=== PATIENT | male | born 1975 | race Two or more races ===

== ENCOUNTER → 2018-12-11 | Outpatient (CLI) | payer OTHER ==
[2018-12-11 08:06] LABS: Basophils # (auto) 0 uL; Basophils % (auto) 0.3 % (0.0-2.0); Eosinophils # (auto) 0.1 uL; Eosinophils % (auto) 2.3 % (0.0-7.0); Hematocrit 44.6 % (41.0-53.0); Hemoglobin 15.6 g/dL (13.5-17.5); Lymphocytes # (auto) 2.3 uL; Lymphocytes % (auto) 43.8 % (10.0-50.0); Mean Corpuscular Hemoglobin 32.9 pg (28.0-32.0); Mean Corpuscular Hgb Conc. 34.9 g/dL (32.0-36.0); Mean Corpuscular Volume 94.2 fL (80.0-100.0); Monocytes # (auto) 0.4 uL; Neutrophils # (auto) 2.4 uL; Neutrophils % (auto) 45.6 % (37.0-80.0); Nucleated Red Blood Cells % 0.1 %; Platelet Count (auto) 247 10^3/uL (140-450); Red Blood Cells 4.73 10^6/uL (4.5-5.90); Red Cell Distribution Width 13.2 % (11.8-14.3); White Blood Cell 5.3 10^3/uL (4.4-10.8)
[2018-12-11 08:42] LABS: BUN/Creatinine Ratio 13.1
[2018-12-11 08:43] LABS: Albumin 3.7 g/dL (3.4-5.0); Calcium 8.7 mg/dL (8.5-10.1)
[2018-12-11 08:46] LABS: Bilirubin, Total 0.5 mg/dL (0.2-1.0)
== END | disposition home or self-care (01) ==
LOC: LAB 07:52
PROVIDERS: ATTEND Physician Assistant
DX: Z00.00 Encounter for general adult medical examination without abnormal findings (principal); J30.2 Other seasonal allergic rhinitis; R51 Headache; K29.60 Other gastritis without bleeding; Z82.3 Family history of stroke; Z83.3 Family history of diabetes mellitus
CPT/HCPCS: 36415; 80053; 80061; 85025

== ENCOUNTER 2020-05-02 12:01 | Inpatient (IN) | payer OTHER ==
[~2020-05-02] VITALS: Ht 180.3 cm; Wt 81.5 kg
[2020-05-02] MEDS: BUDESONIDE (INHALATION) 180 MCG IH IN SCH (07:15)
[2020-05-02] MEDS ORDERED: AZITHROMYCIN 500MG/ 250ML 250 ML IV ONE (12:30)
[2020-05-02] MEDS ORDERED: DexAMETHasone SOD PHOS 10MG/1ML VIAL INJ IV ONE (12:30)
[2020-05-02] MEDS ORDERED: cefTRIAXone 1GM/50ML D5W 50 ML IV ONE (12:30)
[2020-05-02] MEDS ORDERED: ASPirin 81 mg TAB PO ONE (12:30)
[2020-05-02 12:50] LABS: Basophils # (auto) 0 10 ^3/uL (0-0.2); Basophils % (auto) 0.1 % (0.0-2.0); Eosinophils # (auto) 0 10 ^3/uL (0-0.8); Hemoglobin 14.2 g/dL (13.5-17.5); Lymphocytes # (auto) 0.6 10 ^3/uL (0.4-5.4); Lymphocytes % (auto) 8.8 % (10.0-50.0); Mean Corpuscular Hemoglobin 32.2 pg (28.0-32.0); Mean Corpuscular Hgb Conc. 34.7 g/dL (32.0-36.0); Mean Corpuscular Volume 92.8 fL (80.0-100.0); Monocytes # (auto) 0.4 10 ^3/uL (0-1.3); Monocytes % (auto) 6.4 % (0.0-12.0); Neutrophils # (auto) 5.7 10 ^3/uL (1.6-8.6); Neutrophils % (auto) 84.7 % (37.0-80.0); Nucleated Red Blood Cells % 0.1 %; Platelet Count (auto) 231 10^3/uL (140-450); Red Blood Cells 4.42 10^6/uL (4.5-5.90); Red Cell Distribution Width 13.1 % (11.8-14.3); White Blood Cell 6.7 10^3/uL (4.4-10.8)
[2020-05-02 13:14] LABS: Albumin 3.1 g/dL (3.4-5.0); Anion Gap 8 (5-15); Blood Urea Nitrogen 11 mg/dL (7-18); Calcium 8.4 mg/dL (8.5-10.1); Carbon Dioxide 24 mmol/L (21-32); Chloride 99 mmol/L (98-107); Glucose 109 mg/dL (74-106); Potassium 3.8 mmol/L (3.5-5.1); Sodium 131 mmol/L (136-145)
[2020-05-02 13:19] LABS: Alanine Aminotransferase 36 U/L (16-61); Alkaline Phosphatase 56 U/L (45-117); Aspartate Aminotransferase 30 U/L (15-37); BUN/Creatinine Ratio 15.3; Bilirubin, Total 0.4 mg/dL (0.2-1.0); GFR African American 153 mL/min; GFR Non-African American 126 mL/min; Total Protein 7.2 g/dL (6.4-8.2)
[2020-05-02] MEDS ORDERED: MORPHINE SULF INJ 2 MG/ML SYRINGE 1ML IV PRN ×2 (15:30)
[2020-05-02] MEDS ORDERED: LORazepam 0.5 MG TAB PO ONE (15:30)
[2020-05-02] MEDS ORDERED: ALUM & MAG HYDROX-SIMETH LIQ(MAALOX) 30 ML PO PRN (15:30)
[2020-05-02] MEDS ORDERED: REMDESIVIR PER PHARMACY 0 ML IV SCH (15:30)
[2020-05-02] MEDS ORDERED: DOCUSATE SOD 100 MG CAP PO PRN (15:30)
[2020-05-02] MEDS ORDERED: HYDROcodone-ACET 5/325MG TAB PO PRN (15:30)
[2020-05-02] MEDS ORDERED: NITROGLYCERIN 0.4 MG SL TAB SL PRN (15:30)
[2020-05-02] MEDS ORDERED: ONDANSETRON HCL 4 MG/2 ML VIAL IV PRN (15:30)
[2020-05-02] MEDS ORDERED: ACETAMINOPHEN 500 MG TAB PO PRN (15:30)
[2020-05-02] MEDS ORDERED: ALBUAER3 IN (15:38)
[2020-05-02] MEDS ORDERED: REMDESIVIR 200 MG in NS 210ml LOADING DOSE ADULT IV ONE (18:00)
[2020-05-02 18:52] LABS: Urine Bacteria NONE SEEN /hpf (None Seen); Urine Blood Negative /uL (Negative); Urine Specific Gravity 1.006 (1.001-1.035); Urine WBC <1 /hpf (0 - 3)
[2020-05-02 18:56] LABS: Cholesterol 74 mg/dL (< 200); Triglycerides 92 mg/dL (< 150)
[2020-05-02 18:58] LABS: HDL Cholesterol 31 mg/dL (40-59); LDL Cholesterol 36 mg/dL (< 100)
[2020-05-02 19:01] LABS: CRP High Sensitivity 7.79 mg/dL (< 0.3); Magnesium 2.2 mg/dL (1.6-2.6)
[2020-05-02 19:26] LABS: Amphetamine Screen, Urine NEGATIVE (NEGATIVE); Barbiturate Scree,Urine NEGATIVE (NEGATIVE); Benzodiazephine Screen, Urine NEGATIVE (NEGATIVE); Cannabinoid Screen, Urine NEGATIVE (NEGATIVE); Cocaine Screen, Urine NEGATIVE (NEGATIVE); Opiate Scree,Urine NEGATIVE (NEGATIVE); Phencyclidine Screen, Urine NEGATIVE (NEGATIVE)
[2020-05-02] MEDS: FUROSEMIDE 20 MG/2 ML VIAL IV SCH (21:58)
[2020-05-02] MEDS: DOXYCYCLINE 100MG/250ML 250 ML IV SCH (21:59)
[2020-05-02] MEDS: FAMOTIDINE (10MG/ML) 2ML VL IV SCH (21:59)
[2020-05-02] MEDS: ENOXAPARIN SOD 40 MG/0.4 ML SYRINGE SC SCH (21:59)
[2020-05-02] MEDS ORDERED: ATORVASTATIN 20 MG TAB PO SCH (22:00)
[2020-05-03 03:11] VITALS: BP 125/74
[2020-05-03] MEDS: LORazepam 0.5 MG TAB PO PRN ×3 (03:46→21:22)
[2020-05-03 04:07] VITALS: BP 124/75
[2020-05-03] MEDS: FUROSEMIDE 20 MG/2 ML VIAL IV SCH (06:00)
[2020-05-03 08:00] VITALS: BP 111/65
[2020-05-03] MEDS: DexAMETHasone SOD PHOS 10MG/1ML VIAL INJ IV SCH (09:27)
[2020-05-03] MEDS: FAMOTIDINE (10MG/ML) 2ML VL IV SCH ×2 (09:27→21:01)
[2020-05-03] MEDS: DOXYCYCLINE 100MG/250ML 250 ML IV SCH ×2 (09:28→21:01)
[2020-05-03] MEDS: CHOLECALCIFEROL (VITD3) 2,000 UNIT CAP PO SCH (09:28)
[2020-05-03] MEDS: ZINC SULFATE 220mg CAP or TAB PO SCH (09:28)
[2020-05-03] MEDS: ASCORBIC ACID 1,000 MG TAB PO SCH (09:28)
[2020-05-03] MEDS: ASPirin 81 mg TAB PO SCH (09:28)
[2020-05-03] MEDS: ENOXAPARIN SOD 40 MG/0.4 ML SYRINGE SC SCH ×2 (09:29→21:01)
[2020-05-03 09:50] LABS: Potassium 3.8 mmol/L (3.5-5.1)
[2020-05-03 09:56] LABS: Albumin 2.7 g/dL (3.4-5.0); BUN/Creatinine Ratio 16.3; Basophils # (auto) 0 10 ^3/uL (0-0.2); Basophils % (auto) 0.1 % (0.0-2.0); Bilirubin, Total 0.4 mg/dL (0.2-1.0); Calcium 8.4 mg/dL (8.5-10.1); Eosinophils # (auto) 0 10 ^3/uL (0-0.8); Hematocrit 41.4 % (41.0-53.0); Hemoglobin 14.5 g/dL (13.5-17.5); Lymphocytes # (auto) 0.8 10 ^3/uL (0.4-5.4); Lymphocytes % (auto) 11.2 % (10.0-50.0); Magnesium 2.2 mg/dL (1.6-2.6); Mean Corpuscular Hemoglobin 32.6 pg (28.0-32.0); Mean Corpuscular Hgb Conc. 35.1 g/dL (32.0-36.0); Monocytes # (auto) 0.4 10 ^3/uL (0-1.3); Monocytes % (auto) 5.5 % (0.0-12.0); Neutrophils # (auto) 6.1 10 ^3/uL (1.6-8.6); Neutrophils % (auto) 83.2 % (37.0-80.0); Nucleated Red Blood Cells % 0.1 %; Phosphorus 3.1 mg/dL (2.5-4.90); Platelet Count (auto) 272 10^3/uL (140-450); Red Blood Cells 4.45 10^6/uL (4.5-5.90); Red Cell Distribution Width 13.2 % (11.8-14.3); Total Protein 6.9 g/dL (6.4-8.2); White Blood Cell 7.3 10^3/uL (4.4-10.8)
[2020-05-03 10:15] LABS: INR 1.02 (0.9-1.15); Partial Thromboplastin Time 29.6 sec (23.0-31.2)
[2020-05-03] MEDS ORDERED: ERGOCALCIFEROL 50,000 UNIT(1.25MG) CAP PO SCH (12:00)
[2020-05-03] MEDS ORDERED: POTASSIUM CHL 20 Meq TABLET PO ONE (12:00)
[2020-05-03] MEDS: BUDESONIDE (INHALATION) 180 MCG IH IN SCH ×2 (14:00→21:48)
[2020-05-03] MEDS: ALBUTEROL SULF HFA 90MCG INH 200DOSE IN PRN ×2 (14:33→21:49)
[2020-05-03] MEDS: REMDESIVIR 100mg 100 MG in SODIUM CHL 0.9% 230 ML IV SCH (15:51)
[2020-05-03 16:00] VITALS: BP 125/69
[2020-05-04] VITALS: BP 119/77
[2020-05-04] MEDS: LORazepam 0.5 MG TAB PO PRN ×3 (05:12→20:22)
[2020-05-04 06:39] LABS: Potassium 3.9 mmol/L (3.5-5.1)
[2020-05-04 06:51] LABS: Albumin 2.7 g/dL (3.4-5.0); BUN/Creatinine Ratio 16.9; Calcium 8.4 mg/dL (8.5-10.1)
[2020-05-04 06:54] LABS: Bilirubin, Total 0.4 mg/dL (0.2-1.0); Total Protein 6.3 g/dL (6.4-8.2)
[2020-05-04] MEDS: BUDESONIDE (INHALATION) 180 MCG IH IN SCH ×2 (07:15→20:00)
[2020-05-04] MEDS: ALBUTEROL SULF HFA 90MCG INH 200DOSE IN PRN ×2 (07:15→20:00)
[2020-05-04 08:00] VITALS: BP 122/76
[2020-05-04] MEDS: DexAMETHasone SOD PHOS 10MG/1ML VIAL INJ IV SCH (09:13)
[2020-05-04] MEDS: FUROSEMIDE 20 MG/2 ML VIAL IV SCH (09:14)
[2020-05-04] MEDS: ASPirin 81 mg TAB PO SCH (09:15)
[2020-05-04] MEDS: ZINC SULFATE 220mg CAP or TAB PO SCH (09:15)
[2020-05-04] MEDS: FAMOTIDINE (10MG/ML) 2ML VL IV SCH (09:15)
[2020-05-04] MEDS: ASCORBIC ACID 1,000 MG TAB PO SCH (09:15)
[2020-05-04] MEDS: DOXYCYCLINE 100MG/250ML 250 ML IV SCH ×2 (09:15→21:52)
[2020-05-04] MEDS: POTASSIUM CHL 20 Meq TABLET PO SCH (09:16)
[2020-05-04] MEDS: ENOXAPARIN SOD 40 MG/0.4 ML SYRINGE SC SCH ×2 (09:16→21:52)
[2020-05-04] MEDS: CHOLECALCIFEROL (VITD3) 2,000 UNIT CAP PO SCH (09:16)
[2020-05-04] MEDS: REMDESIVIR 100mg 100 MG in SODIUM CHL 0.9% 230 ML IV SCH (15:44)
[2020-05-04 15:58] VITALS: BP 130/69
[2020-05-04] MEDS: FAMOTIDINE 20 MG TAB PO SCH (21:52)
[2020-05-04] MEDS: TEMAZEPAM 15 MG CAP PO PRN (22:01)
[2020-05-05] VITALS: BP 112/71
[2020-05-05 06:56] LABS: Albumin 3.1 g/dL (3.4-5.0); BUN/Creatinine Ratio 19.7; Calcium 8.9 mg/dL (8.5-10.1); Potassium 4.1 mmol/L (3.5-5.1)
[2020-05-05 06:59] LABS: Bilirubin, Total 0.5 mg/dL (0.2-1.0); Total Protein 7.4 g/dL (6.4-8.2)
[2020-05-05 08:00] VITALS: BP 113/71
[2020-05-05] MEDS: ALBUTEROL SULF HFA 90MCG INH 200DOSE IN PRN ×2 (08:00→19:35)
[2020-05-05] MEDS: BUDESONIDE (INHALATION) 180 MCG IH IN SCH ×2 (08:00→19:35)
[2020-05-05] MEDS: CHOLECALCIFEROL (VITD3) 2,000 UNIT CAP PO SCH (09:18)
[2020-05-05] MEDS: ASPirin 81 mg TAB PO SCH (09:18)
[2020-05-05] MEDS: FUROSEMIDE 20 MG/2 ML VIAL IV SCH (09:18)
[2020-05-05] MEDS: ZINC SULFATE 220mg CAP or TAB PO SCH (09:18)
[2020-05-05] MEDS: FAMOTIDINE 20 MG TAB PO SCH ×2 (09:18→22:02)
[2020-05-05] MEDS: DexAMETHasone SOD PHOS 10MG/1ML VIAL INJ IV SCH (09:19)
[2020-05-05] MEDS: POTASSIUM CHL 20 Meq TABLET PO SCH (09:20)
[2020-05-05] MEDS: ASCORBIC ACID 1,000 MG TAB PO SCH (09:20)
[2020-05-05] MEDS: ENOXAPARIN SOD 40 MG/0.4 ML SYRINGE SC SCH ×2 (09:20→22:02)
[2020-05-05] MEDS: DOXYCYCLINE 100MG/250ML 250 ML IV SCH ×2 (09:21→22:02)
[2020-05-05] MEDS: LORazepam 0.5 MG TAB PO PRN (14:04)
[2020-05-05] MEDS ORDERED: cefTRIAXone 1GM/50ML D5W 50 ML IV ONE (14:15)
[2020-05-05] MEDS: REMDESIVIR 100mg 100 MG in SODIUM CHL 0.9% 230 ML IV SCH (15:47)
[2020-05-05 16:00] VITALS: BP 124/72
[2020-05-06] VITALS: BP 122/71
[2020-05-06 06:23] LABS: Basophils # (auto) 0 10 ^3/uL (0-0.2); Basophils % (auto) 0.2 % (0.0-2.0); Eosinophils # (auto) 0 10 ^3/uL (0-0.8); Hematocrit 46.2 % (41.0-53.0); Lymphocytes # (auto) 1.6 10 ^3/uL (0.4-5.4); Lymphocytes % (auto) 21.2 % (10.0-50.0); Mean Corpuscular Hemoglobin 32.5 pg (28.0-32.0); Mean Corpuscular Hgb Conc. 34.7 g/dL (32.0-36.0); Mean Corpuscular Volume 93.6 fL (80.0-100.0); Monocytes # (auto) 1.2 10 ^3/uL (0-1.3); Monocytes % (auto) 15.9 % (0.0-12.0); Neutrophils # (auto) 4.7 10 ^3/uL (1.6-8.6); Neutrophils % (auto) 62.7 % (37.0-80.0); Nucleated Red Blood Cells % 0.1 %; Platelet Count (auto) 411 10^3/uL (140-450); Red Blood Cells 4.94 10^6/uL (4.5-5.90); Red Cell Distribution Width 13.3 % (11.8-14.3); White Blood Cell 7.5 10^3/uL (4.4-10.8)
[2020-05-06 06:42] LABS: Potassium 4.8 mmol/L (3.5-5.1)
[2020-05-06 06:52] LABS: Albumin 2.9 g/dL (3.4-5.0); BUN/Creatinine Ratio 17.3; Bilirubin, Total 0.4 mg/dL (0.2-1.0); Calcium 8.9 mg/dL (8.5-10.1); Total Protein 7.2 g/dL (6.4-8.2)
[2020-05-06] MEDS: ALBUTEROL SULF HFA 90MCG INH 200DOSE IN PRN ×2 (07:38→19:38)
[2020-05-06] MEDS: BUDESONIDE (INHALATION) 180 MCG IH IN SCH ×2 (07:38→18:50)
[2020-05-06 08:00] VITALS: BP 119/69
[2020-05-06] MEDS: DexAMETHasone SOD PHOS 10MG/1ML VIAL INJ IV SCH (09:42)
[2020-05-06] MEDS: cefTRIAXone 1GM/50ML D5W 50 ML IV SCH (09:42)
[2020-05-06] MEDS: FUROSEMIDE 20 MG/2 ML VIAL IV SCH (09:43)
[2020-05-06] MEDS: ASPirin 81 mg TAB PO SCH (09:43)
[2020-05-06] MEDS: FAMOTIDINE 20 MG TAB PO SCH ×2 (10:08→22:38)
[2020-05-06] MEDS: POTASSIUM CHL 20 Meq TABLET PO SCH (10:08)
[2020-05-06] MEDS: ZINC SULFATE 220mg CAP or TAB PO SCH (10:08)
[2020-05-06] MEDS: ASCORBIC ACID 1,000 MG TAB PO SCH (10:09)
[2020-05-06] MEDS: CHOLECALCIFEROL (VITD3) 2,000 UNIT CAP PO SCH (10:09)
[2020-05-06] MEDS: DOXYCYCLINE 100MG/250ML 250 ML IV SCH ×2 (10:09→22:37)
[2020-05-06] MEDS: ENOXAPARIN SOD 40 MG/0.4 ML SYRINGE SC SCH ×2 (15:12→22:38)
[2020-05-06] MEDS: REMDESIVIR 100mg 100 MG in SODIUM CHL 0.9% 230 ML IV SCH (15:12)
[2020-05-06 16:00] VITALS: BP 113/73
[2020-05-06] MEDS: LORazepam 0.5 MG TAB PO PRN (20:52)
[2020-05-07] VITALS: BP 108/69
[2020-05-07 08:00] VITALS: BP 114/74
[2020-05-07] MEDS: BUDESONIDE (INHALATION) 180 MCG IH IN SCH ×2 (09:49→22:09)
[2020-05-07] MEDS: ALBUTEROL SULF HFA 90MCG INH 200DOSE IN PRN ×2 (09:49→22:09)
[2020-05-07] MEDS: DexAMETHasone SOD PHOS 10MG/1ML VIAL INJ IV SCH (10:02)
[2020-05-07] MEDS: cefTRIAXone 1GM/50ML D5W 50 ML IV SCH (10:02)
[2020-05-07] MEDS: ASPirin 81 mg TAB PO SCH (10:03)
[2020-05-07] MEDS: FUROSEMIDE 20 MG/2 ML VIAL IV SCH (10:03)
[2020-05-07] MEDS: ZINC SULFATE 220mg CAP or TAB PO SCH (10:03)
[2020-05-07] MEDS: POTASSIUM CHL 20 Meq TABLET PO SCH (10:04)
[2020-05-07] MEDS: FAMOTIDINE 20 MG TAB PO SCH ×2 (10:04→21:39)
[2020-05-07] MEDS: ASCORBIC ACID 1,000 MG TAB PO SCH (10:04)
[2020-05-07] MEDS: CHOLECALCIFEROL (VITD3) 2,000 UNIT CAP PO SCH (10:04)
[2020-05-07] MEDS: ENOXAPARIN SOD 40 MG/0.4 ML SYRINGE SC SCH ×2 (10:04→21:38)
[2020-05-07] MEDS: DOXYCYCLINE 100MG/250ML 250 ML IV SCH (10:22)
[2020-05-07 16:00] VITALS: BP 107/72
[2020-05-07] MEDS: TEMAZEPAM 15 MG CAP PO PRN (21:39)
[2020-05-08] VITALS: BP 118/73
[2020-05-08 08:00] VITALS: BP 117/70
[2020-05-08] MEDS: cefTRIAXone 1GM/50ML D5W 50 ML IV SCH (08:57)
[2020-05-08] MEDS: BUDESONIDE (INHALATION) 180 MCG IH IN SCH (08:57)
[2020-05-08] MEDS: DexAMETHasone SOD PHOS 10MG/1ML VIAL INJ IV SCH (08:58)
[2020-05-08] MEDS: ASPirin 81 mg TAB PO SCH (08:58)
[2020-05-08] MEDS: FUROSEMIDE 20 MG/2 ML VIAL IV SCH (08:58)
[2020-05-08] MEDS: ENOXAPARIN SOD 40 MG/0.4 ML SYRINGE SC SCH (08:59)
[2020-05-08] MEDS: ZINC SULFATE 220mg CAP or TAB PO SCH (08:59)
[2020-05-08] MEDS: CHOLECALCIFEROL (VITD3) 2,000 UNIT CAP PO SCH (08:59)
[2020-05-08] MEDS: FAMOTIDINE 20 MG TAB PO SCH (09:07)
[2020-05-08] MEDS: ASCORBIC ACID 1,000 MG TAB PO SCH (09:07)
[2020-05-08] MEDS: POTASSIUM CHL 20 Meq TABLET PO SCH (09:08)
[2020-05-08] MEDS: ALBUTEROL SULF HFA 90MCG INH 200DOSE IN PRN (10:15)
[2020-05-08 13:11] VITALS: BP 117/70
== END 2020-05-08 16:35 | disposition home or self-care (01) | DRG 871 ==
LOC: ER 12:01 → TELE 12:02 → TELE-EAST 05-03 03:11
PROVIDERS: ADMIT Hospitalist; ATTEND Internal Medicine
PROC: XW033E5 Introduction of Remdesivir Anti-infective into Peripheral Vein, Percutaneous Approach, New Technology Group 5 (ICD-10-PCS; principal; 2020-05-02)
DX: A41.89 Other specified sepsis (principal); J12.82 Pneumonia due to coronavirus disease 2019; J96.01 Acute respiratory failure with hypoxia; U07.1 COVID-19; E44.0 Moderate protein-calorie malnutrition; E87.1 Hypo-osmolality and hyponatremia; N39.0 Urinary tract infection, site not specified; F41.9 Anxiety disorder, unspecified; J45.909 Unspecified asthma, uncomplicated; Z79.82 Long term (current) use of aspirin; E66.3 Overweight
CPT/HCPCS: 36415; 71045; 80053; 80061; 80307; 81001; 82306; 82728; 83036; 83605; 83615; 83735; 84100; 84443; 84484; 85025; 85379; 85610; 85730; 86141; 87040; 87086; 87804; 93005; 94640; 99291; G0378; J0696; J1100; J3490

== ENCOUNTER → 2021-03-06 | Outpatient (CLI) | payer OTHER ==
[~2021-03-06] MED LIST: ALBUAER3 IN
== END | disposition home or self-care (01) ==
LOC: XYW 08:50
PROVIDERS: ATTEND Internal Medicine
DX: I35.8 Other nonrheumatic aortic valve disorders (principal); I51.7 Cardiomegaly; I49.9 Cardiac arrhythmia, unspecified
CPT/HCPCS: 93306

== ENCOUNTER → 2023-06-03 | Outpatient (CLI) | payer OTHER | END | disposition home or self-care (01) | LOC: XYW 14:09 | PROVIDERS: ATTEND Internal Medicine | DX: I77.89 Other specified disorders of arteries and arterioles (principal); I51.89 Other ill-defined heart diseases; I51.7 Cardiomegaly | CPT/HCPCS: 93306 ==

== ENCOUNTER → 2023-06-26 | Outpatient (CLI) | payer OTHER ==
[2023-06-26 16:00] LABS: Basophils # (auto) 0 10 ^3/uL (0-0.2); Basophils % (auto) 0.5 % (0.0-2.0); Eosinophils # (auto) 0.1 10 ^3/uL (0-0.8); Hematocrit 46.7 % (41.0-53.0); Hemoglobin 15.7 g/dL (13.5-17.5); Lymphocytes # (auto) 2.2 10 ^3/uL (0.4-5.4); Lymphocytes % (auto) 32.4 % (10.0-50.0); Mean Corpuscular Hemoglobin 31.9 pg (28.0-32.0); Mean Corpuscular Hgb Conc. 33.7 g/dL (32.0-36.0); Mean Corpuscular Volume 94.7 fL (80.0-100.0); Monocytes # (auto) 0.6 10 ^3/uL (0-1.3); Monocytes % (auto) 9.3 % (0.0-12.0); Neutrophils # (auto) 3.8 10 ^3/uL (1.6-8.6); Neutrophils % (auto) 55.8 % (37.0-80.0); Red Blood Cells 4.94 10^6/uL (4.5-5.90); Red Cell Distribution Width 13.5 % (11.8-14.3); White Blood Cell 6.8 10^3/uL (4.4-10.8)
[2023-06-26 16:17] LABS: Urine Bacteria NONE SEEN /hpf (None Seen); Urine Blood Negative /uL (Negative); Urine Clarity Clear (Clear); Urine Color Yellow (Yellow); Urine Mucus MODERATE (None Seen); Urine Protein, UAD TRACE (Negative); Urine Specific Gravity 1.026 (1.001-1.035); Urine Urobilinogen Normal (Negative); Urine WBC 1 /hpf (0 - 3); Urine pH 5.5 (5.0-8.0)
[2023-06-26 16:23] LABS: Alanine Aminotransferase 50 U/L (7-40); Albumin 4.5 g/dL (3.2-4.8); Alkaline Phosphatase 65 U/L (46-116); Anion Gap 2 (5-15); Aspartate Aminotransferase 25 U/L (13-40); BUN/Creatinine Ratio 9.5 (10.0-20.0); Blood Urea Nitrogen 10 mg/dL (9-23); Calcium 9.7 mg/dL (8.5-10.1); Carbon Dioxide 33 mmol/L (20-30); Chloride 107 mmol/L (98-107); Cholesterol 158 mg/dL (< 200); Glucose 86 mg/dL (74-106); HDL Cholesterol 39 mg/dL (40-59); LDL Cholesterol 107 mg/dL (< 100); Potassium 4.8 mmol/L (3.5-5.1); Sodium 142 mmol/L (136-145); Triglycerides 119 mg/dL (< 150)
[2023-06-26 16:24] LABS: Bilirubin, Total 0.8 mg/dL (0.2-1.0); Total Protein 6.8 g/dL (5.7-8.2)
== END | disposition home or self-care (01) ==
LOC: LAB 15:44
PROVIDERS: ATTEND Internal Medicine
DX: I77.89 Other specified disorders of arteries and arterioles (principal); E55.9 Vitamin D deficiency, unspecified; R00.2 Palpitations
CPT/HCPCS: 36415; 80053; 80061; 81001; 83036; 84443; 85025; 85379